=== PATIENT | male | born 1975 | race Caucasian/White ===

== ENCOUNTER 2018-03-03 08:49 | Emergency (ER) | payer OTHER ==
--- NOTE | 2018-03-03 09:44 | EDM.PDOC ---
ED HPI GENERAL MEDICAL PROBLEM - General Chief Complaint: Upper Extremity Injury/Pain Stated Complaint: Left little finger injury Time Seen by Provider: 03/03/18 09:18 Source of Information: Reports: Patient History Limitations: Reports: No Limitations - History of Present Illness INITIAL COMMENTS - FREE TEXT/NARRATIVE: Crush injury at work, left 5th finger. Caught between flat surfaces. No laceration. Has discomfort around proximal portion of the finger. Able to flex/ extend joints of affected finger. Denies other injuries to the hand/fingers. No other complaints. Mild numbness of finger subjectively proximally. - Related Data Allergies Allergy/AdvReac Type Severity Reaction Status Date / Time No Known Allergies Allergy Verified 08/10/14 15:38 Home Meds: Home Meds Multivitamin [Multi-Vitamin Daily] 1 tab PO 1800 08/10/14 [History] Past Medical History - Past Health History Medical/Surgical History: Denies Medical/Surgical History Social & Family History - Tobacco Use Smoking Status *Q: Never Smoker Second Hand Smoke Exposure: No - Caffeine Use Caffeine Use: Reports: None - Recreational Drug Use Recreational Drug Use: No - Living Situation & Occupation Living situation: Reports: Occupation: Employed Review of Systems - Review of Systems Review Of Systems: ROS reveals no pertinent complaints other than HPI. ED EXAM, GENERAL - Physical Exam Exam: See Below Exam Limited By: No Limitations General Appearance: Alert, WD/WN, No Apparent Distress Eye Exam: Bilateral Eye: EOMI, PERRL Head: Atraumatic, Normocephalic Neck: Supple Respiratory/Chest: No Respiratory Distress Extremities: Normal Capillary Refill, Other (Tendon function intact all fingers of affected left hand. Mild swelling of left 5th finger. Small abrasion at base. Cap refill brisk. Hand/fingers otherwise non-tender. ) Neurological: Alert, Oriented, Normal Cognition, Normal Gait Psychiatric: Normal Affect, Normal Mood Skin Exam: Warm, Dry Course - Orders/Labs/Meds Orders: Active Orders 24 hr Category Date Time Status Hand Comp Min 3V Lt [CR] Stat Exams 03/03/18 09:02 Taken - Re-Assessments/Exams Free Text/Narrative Re-Assessment/Exam: 03/03/18 11:13 Injured finger splinted for protection/comfort. Precautions reviewed. To follow up as needed. Departure - Departure Time of Disposition: 09:42 Disposition: Home, Self-Care 01 Condition: Good Clinical Impression: Crushing injury of finger, left - Discharge Information Instructions: Crush Injury of the Hand, [id number] Referrals: PCP,Unknown [Primary Care Provider] - Forms: ED Department Discharge Additional Instructions: Tylenol or Ibuprofen/Aleve for comfort. OK to mix Tylenol with the Ibuprofen. Wear splint for comfort and protection this week. When swelling and pain improve you can try to discontinue the splint. If pain has not significantly improved within a week, follow up for a recheck with local clinic/new xrays as we discussed. Follow up otherwise as needed. - My Orders Last 24 Hours: My Active Orders 03/03/18 09:02 Hand Comp Min 3V Lt [CR] Stat - Assessment/Plan Last 24 Hours: My Active Orders 03/03/18 09:02 Hand Comp Min 3V Lt [CR] Stat
== END 2018-03-03 10:05 | disposition home or self-care (01) ==
LOC: LL.ED 08:49
DX: S67.197A Crushing injury of left little finger, initial encounter (principal); Z79.899 Other long term (current) drug therapy; W23.1XXA Caught, crushed, jammed, or pinched between stationary objects, initial encounter; Y99.0 Civilian activity done for income or pay
CPT/HCPCS: 73130-LT; 99283

== ENCOUNTER 2020-12-09 04:58 | Emergency (ER) | payer BC, OTHER ==
--- NOTE | 2020-12-09 05:25 | EDM.PDOC ---
ED HPI GENERAL MEDICAL PROBLEM - General Chief Complaint: Back Pain or Injury Stated Complaint: Back Pain Time Seen by Provider: 12/09/20 05:15 Source of Information: Reports: Patient, Family (), Old Records ([facility] chart/EMR) History Limitations: Reports: No Limitations - History of Present Illness INITIAL COMMENTS - FREE TEXT/NARRATIVE: The patient was brought to the emergency room via private automobile by his for evaluation of exacerbation of his chronic intermittent low back pain, which has been present for the last few weeks. No previous injury at onset of this recent exacerbation with worsening symptoms over the last week, including right- sided sciatica, which is now extending to his foot. He is having some paresthesias in this area, however no neurological deficits. Patient was seen by his regular provider on 12/06 and was prescribed Naprosyn, Flexeril, and a short course of steroids. The patient did have physical therapy on 12/08 with worsening right-sided low back spasms and sciatica since about 930 this a.m. He did take his morning dose of Naprosyn at 2 AM a little bit early today and took Flexeril at 8 PM and 1 AM prior to arrival to this facility. No recent history of abdominal pain, heartburn, nausea, diarrhea, melena, gross hematochezia, or any food intolerance, including fatty foods, etc.. The patient also denies any recent fever, cough, wheezing, dyspnea, etc.. He denies any gross hematuria, colic, or other UTI symptoms. Onset: Gradual Onset Date: 12/08/20 Onset Time: 21:30 Duration: Constant, Getting Worse Location: Reports: Back, Lower Extremity, Right, Radiates to (As above). Denies: Head, Face, Neck, Chest, Abdomen, Pelvis Quality: Reports: Ache, Same as Previous Episode, Sharp, Stabbing Severity: Severe Improves with: Reports: None Worsens with: Reports: Movement Context: Reports: Other (As above). Denies: Sick Contact, Trauma Associated Symptoms: Reports: No Other Symptoms. Denies: Confusion, Chest Pain, Cough, cough w sputum, Diaphoresis, Fever/Chills, Headaches, Loss of Appetite, Malaise, Nausea/Vomiting, Rash, Shortness of Breath, Syncope, Weakness Treatments ART TRACER: Reports: Cold Therapy, NSAIDS, Other Medication(s) Right Lower Back Pain Score (Numeric/FACES): 10 - Related Data Allergies Allergy/AdvReac Type Severity Reaction Status Date / Time No Known Allergies Allergy Verified 08/10/14 15:38 Home Meds: Home Meds Multivitamin [Multi-Vitamin Daily] 1 tab PO 1800 08/10/14 [History] Cyclobenzaprine [Flexeril] 10 mg PO BEDTIME PRN 12/09/20 [History] Naproxen 500 mg PO BID 12/09/20 [History] predniSONE [Prednisone] 40 mg PO DAILY 12/09/20 [History] Past Medical History HEENT History: Reports: Impaired Vision, Other (See Below). Denies: Hard of Hearing, Otitis Media Other HEENT History: Patient wears glasses Cardiovascular History: Reports: None. Denies: Afib, Aneurysm, Blood Clots/VTE/DVT, High Cholesterol, Hypertension Respiratory History: Reports: None. Denies: Asthma, COPD Gastrointestinal History: Reports: Other (See Below). Denies: Celiac Disease, Cholelithiasis, GERD, Inflammatory Bowel Disease, Irritable Bowel Syndrome Other Gastrointestinal History: Umbilical hernia. Genitourinary History: Reports: None Musculoskeletal History: Reports: Arthritis, Back Pain, Chronic, Osteoarthritis, Other (See Below). Denies: Fracture, Gout, RA, SLE Other Musculoskeletal History: Chronic low back pain with previous history of multiple minor injuries and sprains since about age 29. Neurological History: Reports: Neuropathy, Peripheral, Other (See Below) Other Neuro History: Intermittent right-sided sciatica secondary to low back pain. Psychiatric History: Reports: None. Denies: Anxiety, Depression Endocrine/Metabolic History: Reports: Obesity/BMI 30+. Denies: Diabetes, Type I, Diabetes, Type II, Hypothyroidism, IDDM Hematologic History: Reports: None Immunologic History: Reports: None Oncologic (Cancer) History: Reports: None Dermatologic History: Reports: None - Infectious Disease History Infectious Disease History: Reports: Chicken Pox, Novel Coronavirus (June 2020). Denies: C-Difficile, MRSA, Shingles, VRE - Past Surgical History HEENT Surgical History: Reports: Oral Surgery, Other (See Below) Other HEENT Surgeries/Procedures: [place] teeth extraction in 2011. GI Surgical History: Reports: None. Denies: Colonoscopy, EGD, Hernia, Abdominal, Hernia, Inguinal, Hernia Repair/Other Male Surgical History: Reports: Circumcision, Vasectomy, Other (See Below) Other Male Surgeries/Procedures: Circumcision as an . Vasectomy in 2010. Neurological Surgical History: Reports: None. Denies: C-Spine, Discectomy, Laminectomy, Lumbar Spine, Sacral Spine, Scoliosis, Thoracic Spine, V ertebroplasty - Past Imaging History Past Imaging History: Reports: None. Denies: CAT Scan, MRI Social & Family History - Tobacco Use Tobacco Use Status *Q: Former Tobacco User Tobacco Use Within Last Twelve Months: No (Cell phone appears) Years of Tobacco use: 27 Packs/Tins Daily: 0.3 Packs/Tins Daily Comment: Maximum use of 1 pack/day with occasional cigar use previously. No tobacco use since May 2019. Used Tobacco, but Quit: Yes Smoking Cessation Information Provided To Patient: No Second Hand Smoke Exposure: No Second Hand Smoke Education Provided: No - Caffeine Use Caffeine Use: Reports: Coffee (2 cups/day), Soda (Occasional). Denies: Energy Drinks, Tea - Alcohol Use Alcohol Use History: Yes Days Per Week of Alcohol Use: 2 Number of Drinks Per Day: 2 Number of Drinks Per Day Comment: Usually beer. DWI at age 27. No previous alcohol abuse or treatment. Total Drinks Per Week: 4 Alcohol Use in Last Twelve Months: Yes - Living Situation & Occupation Living situation: Reports: (2006 ,4 children), with Family Occupation: Employed ([employer] inspector) ED ROS GENERAL - Review of Systems Review Of Systems: Comprehensive ROS is negative, except as noted in HPI. ED EXAM,LOWER BACK PAIN/INJURY - Physical Exam Exam: See Below Exam Limited By: No Limitations General Appearance: Alert, WD/WN, No Apparent Distress Head: Atraumatic, Normocephalic Neck: Normal Inspection, Supple, Non-Tender, Full Range of Motion. No: Lymphadenopathy (L), Lymphadenopathy (R), Thyromegaly Respiratory/Chest: No Respiratory Distress, Lungs Clear, Normal Breath Sounds, No Accessory Muscle Use, Chest Non-Tender. No: Pleural Rub, Retractions Cardiovascular: Normal Peripheral Pulses, Regular Rate, Rhythm, No Edema, No Gallop, No JVD, No Murmur, No Rub. No: Gallop/S3, Gallop/S4, Friction Rub GI/Abdominal: Normal Bowel Sounds, Soft, Non-Tender, No Organomegaly, No Distention, No Abnormal Bruit, No Mass, Pelvis Stable, Hernia (2 cm nonincarcerated umbilical hernia), Other (Mildly obese). No: Guarding (Male) Exam: Deferred Rectal (Males) Exam: Deferred Back Exam: Decreased Range of Motion (Mild secondary to low back pain), Muscle Spasm (Moderate right-sided mid to lower paraspinal muscle spasms and tenderness without ecchymosis, crepitation, etc.), Paraspinal Tenderness (As above). No: CVA Tenderness (L), CVA Tenderness (R) Extremities: Normal Inspection, Normal Range of Motion, Non-Tender, No Pedal Edema, Normal Capillary Refill. No: James's Sign Neurological: Alert, Normal Mood/Affect, Normal Dorsiflexion, CN II-XII Intact, Normal Plantar Flexion, Normal Gait, Normal Reflexes, No Motor/Sensory Deficits, Oriented x 3 DTR - Lower Extremities: 2+: Knee (R), Knee (L) Psychiatric: Normal Affect, Normal Mood Skin Exam: Warm, Dry, Intact, Normal Color, No Rash. No: Diaphoretic, Wound/Incision Lymphatic: No Adenopathy Course - Vital Signs Last Recorded V/S: Last Vital Signs Temp 36.3 C 12/09/20 05:12 Pulse 94 12/09/20 05:12 Resp 16 12/09/20 05:12 BP 148/64 H 12/09/20 05:12 Pulse Ox 99 12/09/20 05:12 Vital Signs - 24 hr 12/09/20 05:12 Temperature [ 36.3 C Temporal] Pulse, 94 Peripheral [ Left Pulse Oximetry] Respiratory 16 Rate Blood Pressure 148/64 H [Right Upper Arm] O2 Sat by Pulse 99 Oximetry - Orders/Labs/Meds Orders: Active Orders 24 hr Category Date Time Status Peripheral IV Care [RC] . DIRECTED Care 12/09/20 05:27 Active Ondansetron [Zofran] Med 12/09/20 05:37 Once 4 mg IVPUSH ONETIME ONE Sodium Chloride 0.9% [Saline Flush] Med 12/09/20 05:26 Active 10 ml FLUSH ASDIRECTED PRN Obtain Past Medical Record [OM.PC] Routine Oth 12/09/20 05:26 Active Peripheral IV Insertion Adult [OM.PC] Routine Oth 12/09/20 05:26 Ordered Medication Orders Sodium Chloride (Sodium Chloride 0.9% 10 Ml Syringe) 10 ml FLUSH ASDIRECTED PRN PRN Reason: Keep Vein Open Last Admin: 12/09/20 05:31 Dose: 10 ml Documented by: ARELI Labs: None Meds: Medications Generic Name Dose Route Start Last Admin Trade Name Freq PRN Reason Stop Dose Admin Sodium Chloride 10 ml 12/09/20 05:26 12/09/20 05:31 Sodium Chloride 0.9% 10 Ml Syringe FLUSH 10 ml ASDIRECTED PRN Administration Keep Vein Open Discontinued Medications Generic Name Dose Route Start Last Admin Trade Name Freq PRN Reason Stop Dose Admin Diazepam 2.5 mg 12/09/20 05:27 12/09/20 05:32 Diazepam 10 Mg/2 Ml Syringe IVPUSH 12/09/20 05:28 2.5 mg ONETIME ONE Administration Hydromorphone HCl 1 mg 12/09/20 05:26 12/09/20 05:34 Hydromorphone 1 Mg/Ml Syringe IVPUSH 12/09/20 05:27 1 mg ONETIME ONE Administration - Radiology Interpretation Free Text/Narrative:: None Departure - Departure Time of Disposition: 06:00 Disposition: Home, Self-Care 01 Condition: Good Clinical Impression: Osteoarthritis, Low back pain - Discharge Information *PRESCRIPTION DRUG MONITORING PROGRAM REVIEWED*: Not Applicable *COPY OF PRESCRIPTION DRUG MONITORING REPORT IN PATIENT RHONDA: Not Applicable Instructions: Chronic Back Pain, [id number], Back Injury Prevention, [id number] Forms: ED Department Discharge, ED Return to Work/School Form Additional Instructions: 1. Followup with your regular provider in 7-10 days as directed with recommended repeat baseline x-rays of the lumbar spine with distant x-rays on 08/10/2014. Consider CT versus MRI of the lumbar spine depending on symptoms at time of follow-up visit, including persistent right-sided sciatica. Bring these discharge instructions with you to that visit. 2. Tylenol 650 mg by mouth every 4 hours when necessary as directed. 3. BenGay or equivalent, heating pad, and/or ice packs as directed. 4. You may continue physical therapy next week, although discussed today's emergency room visit with them at that time 5. Work excuse- See Form 6. Immediately after this visit verify that your cellular telephone's voicemail has been activated and is empty. Also verify that your home telephone's answering machine is operating properly and has space to receive messages. Note that it is sometimes necessary for us to be able to contact you at a later date to discuss your medical care. 7. Please remember that we are ALWAYS here for you and want to answer any questions you may have. Feel free to call the hospital any time and we call you back DHRUV. 8. Sedation precautions with no driving, etc. for 18 hours because of emergency room medications. Next dose of cyclobenzaprine no earlier than noon today secondary to medications given in the emergency room. You may take the cyclobenzaprine up to 3 times a day during the next couple of days not while not work with sedation precautions, no driving, etc. as discussed with this medication also. Sepsis Event Note (ED) - Evaluation Sepsis Screening Result: No Definite Risk - Focused Exam Vital Signs: Vital Signs Temp Pulse Resp BP Pulse Ox 12/09/20 05:12 36.3 C 94 16 148/64 H 99 - Problem List & Annotations (1) Low back pain SNOMED Code(s): 692372088 Code(s): M54.5 - LOW BACK PAIN Status: Acute Priority: High Current Visit: Yes Onset Date: 08/04/14 Annotation/Comment:: Occasional exacerbation of chronic low back pain, including today with last ER visit in this facility for similar type symptoms on 08/10/2014. Overall good results with medical therapy as above. Sedation precautions were given. Work excuse was provided. Secondary to no history of recent injury x-rays were not indicated at this time, although they should be strongly considered at follow-up visit with possible CT or MRI to be scheduled by his regular provider at the above follow-up depending on his clinical course. Topical therapy was extensively discussed. Weight loss in moderation was also discussed and is advisable. He may continue physical therapy as before. (2) Osteoarthritis SNOMED Code(s): 455498677 Code(s): M19.90 - UNSPECIFIED OSTEOARTHRITIS, UNSPECIFIED SITE Status: Chronic Priority: Medium Current Visit: Yes Annotation/Comment:: Otherwise stable by history. - Problem List Review Problem List Initiated/Reviewed/Updated: Yes - My Orders Last 24 Hours: My Active Orders 12/09/20 05:26 Sodium Chloride 0.9% [Saline Flush] 10 ml FLUSH ASDIRECTED PRN Obtain Past Medical Record [OM.PC] Routine Peripheral IV Insertion Adult [OM.PC] Routine 12/09/20 05:27 Peripheral IV Care [RC] . DIRECTED 12/09/20 05:37 Ondansetron [Zofran] 4 mg IVPUSH ONETIME ONE - Assessment/Plan Last 24 Hours: My Active Orders 12/09/20 05:26 Sodium Chloride 0.9% [Saline Flush] 10 ml FLUSH ASDIRECTED PRN Obtain Past Medical Record [OM.PC] Routine Peripheral IV Insertion Adult [OM.PC] Routine 12/09/20 05:27 Peripheral IV Care [RC] . DIRECTED 12/09/20 05:37 Ondansetron [Zofran] 4 mg IVPUSH ONETIME ONE Assessment:: As above Plan: As above. Extensive precautions were given to the patient and his , who are in agreement with the treatment plan. See Patient Instructions for further treatment and plan. His did drive him home.
[2020-12-09] MEDS ORDERED: HYDROmorphone 1 MG/ML Syringe IVPUSH ONE (05:26)
[2020-12-09] MEDS: Sodium Chloride 0.9% 10 ML Syringe FLUSH PRN ×2 (05:31→05:42)
[2020-12-09] MEDS ORDERED: Ondansetron 4 MG/2 ML SDV IVPUSH ONE (05:37)
== END 2020-12-09 05:50 | disposition home or self-care (01) ==
LOC: LL.ED 04:58
DX: M54.5 Low back pain (principal); M19.90 Unspecified osteoarthritis, unspecified site; E66.9 Obesity, unspecified; Z87.891 Personal history of nicotine dependence; Z79.899 Other long term (current) drug therapy; Z68.36 Body mass index [BMI] 36.0-36.9, adult
CPT/HCPCS: 96374; 96375; 99283; 99283-25; J1170; J2405; J3360